=== PATIENT | male | born 1960 | race Caucasian/White ===

== ENCOUNTER 2020-04-17 02:56 | Observation (INO) | payer OTHER, SELFPAY ==
[2020-04-17] VITALS (10 sets, daily range): BP systolic 110–155; BP diastolic 63–98; PULSE 68–93; RESP 14–22; TEMP 36.5–37; O2SAT 94–99; BMI 22.1
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
--- NOTE | 2020-04-17 03:06 | ECG_ITS ---
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 Measurements Intervals [place] Rate: 67 P: -29 FL: 130 QRS: 52 QRSD: 109 T: 39 QT: 386 QTc: 410 Interpretive Statements SINUS RHYTHM EARLY REPOLARIZATION [ST ELEVATION WITH NORMALLY INFLECTED T WAVE] No previous ECG available for comparison Electronically Signed On 04-17-2020 9:14:10 CDT by Yumiko Che M.D. [id number]
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
[2020-04-17] MEDS: ondansetron 2 mg/ML SDV 2 mL 4 MG IVP (03:35)
[2020-04-17] MEDS: sodium chloride 0.9% 1,000 ML 999 ML IV (03:36)
[2020-04-17] MEDS: iohexol 300 mg/mL 100 mL Btl IV (03:49)
[2020-04-17 04:48] LABS: Basophils # 0.1 10^3/uL (0.0-0.1); Basophils % 0.3 %; Eosinophils # 0.1 10^3/uL (0.0-0.8); Eosinophils % 0.3 %; Hematocrit 41.9 % (42.0-52.0); Lymphocytes # 1.5 10^3/uL (0.8-4.8); Lymphocytes % 7.3 %; Mean Corpuscular HGB Conc 33.4 g/dL (30.0-36.0); Mean Corpuscular Hemoglobin 32.1 pg (28.0-34.0); Mean Corpuscular Volume 96.1 fL (80-94); Mean Platelet Volume 9.3 fL (7.4-10.4); Monocytes # 1.1 10^3/uL (0.2-0.9); Monocytes % 5.2 %; Neutrophils # 18.26 10^3/uL (1.8-7.7); Neutrophils % 86.3 %; Nucleated Red Blood Cells % 0 %; Platelet Count 344 10^3/cmm (130-400); Red Blood Count 4.36 10^6/uL (4.1-5.3); Red Cell Distribution Width 12.7 % (12.1-15.1); White Blood Count 21.2 10^3/uL (4.0-10.0)
[2020-04-17 05:16] LABS: Alanine Aminotransferase 21 U/L (0-41); Albumin Level 4.2 g/dL (3.5-5.2); Alcohol Level 190 mg/dL (0-10); Alkaline Phosphatase 45 IU/L (40-130); Anion Gap 14.9 (5-19); Aspartate Amino Transferase 23 U/L (0-40); Blood Urea Nitrogen 13 mg/dL (6-20); Calcium 8.1 mg/dL (8.5-10.5); Carbon Dioxide 22 mmol/L (22-29); Chloride 104 mmol/L (98-107); Globulin 2.3 g/dL (1.3-4.6); Glomerular Filtration Rate 86.4 mL/min (90-130); Glucose 115 mg/dL (65-115); Osmolality Calculated 281 mOsm/kg (285-295); Potassium 3.9 mmol/L (3.5-5.1); Sodium 137 mmol/L (136-145); Total Bilirubin 0.2 mg/dL (0.15-1.2); Total Protein 6.5 g/dL (6.6-8.7)
[2020-04-17 05:29] LABS: Add Urine Microscopic? NO
[2020-04-17 05:35] LABS: Bilirubin Urine Neg (NEGATIVE); Blood Urine Neg (Negative); Glucose Urine UA Norm (Normal); Ketones Urine Negative (Negative); Leukocyte Esterase Urine Negative (Negative); Nitrate Urine Negative (Negative); Protein Urine Neg (Negative); Urine Appearance Clear (CLEAR); Urine Color Yellow (Yellow); Urobilinogen Urine Norm (Negative); pH Urine 5 (5-7)
[2020-04-17 05:38] LABS: INR 0.87 (0.8-1.2)
[2020-04-17 05:44] LABS: Amphetamines Screen Urine Negative (Negative); Barbiturates Screen Urine Negative (Negative); Benzodiazepines Screen Urine Negative (Negative); Cocaine Screen Urine Negative (Negative); Opiate Screen Urine Negative (Negative); PCP Screen Urine Negative (Negative); THC Screen Urine Negative (Negative)
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
[2020-04-17] MEDS: tetanus-dipt-pertussis 0.5 mL SDV IM (06:48)
[2020-04-17] MEDS: lactated ringers 1,000 ML 100 ML IV ×2 (07:57→18:05)
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
[2020-04-17] MEDS: oxyCODONE-APAP 5-325 mg Tablet 1 TAB PO (12:18)
--- NOTE | 2020-04-17 16:13 | PM.PN ---
Subjective Subjective: Interval history: No acute events. Patient has been able to wean down to room air, currently saturating 96%. He has been up and ambulating within the room to the bathroom and back. Per nurse he was able to do some squats in his room earlier. No overt signs of alcohol withdrawal. Medications: Reviewed: Yes Vitals/I&O/Wt Last Vital Signs Temp 98.1 F 04/17/20 15:57 Pulse 93 04/17/20 15:57 Resp 18 04/17/20 15:57 BP 134/67 04/17/20 15:57 Pulse Ox 96 04/17/20 12:18 04/17/20 04/17/20 04/17/20 06:59 14:59 22:59 Intake Total 480 / 480 Output Total 800 / 800 Balance -320 / -320 Weight last 48 hrs Weight 68.039 kg Physical Exam Narrative: EXAM NARRATIVE: GEN: Awake, alert and oriented, no acute distress CVS: S1s2 N RS: CTA B/L Abd: Soft, nt/nd , bs+ CALF SKINNER: no focal neuro deficits Data : 04/17/20 04:05 04/17/20 04:05 A&P Assessment and plan (1) Closed head injury: Will defer to primary. Possible traumatic closed head injury with loss of consciousness. No neurologic focal deficits currently and no obvious acute skin findings of skull. Status: Acute (2) Closed rib fracture: Status: Acute Qualifiers: Encounter type: initial encounter Laterality: left Rib fracture type: single rib Qualified Code(s): S22.32XA - Fracture of one rib, left side, initial encounter for closed fracture (3) Pneumothorax: Small apical pneumothorax seen. Pain is currently well controlled Otherwise management per surgical recommendations. Repeat chest x-ray planned for tomorrow morning Patient has been able to be weaned down to room air today. Status: Acute Qualifiers: Encounter type: initial encounter Pneumothorax type: traumatic Qualified Code(s): S27.0XXA - Traumatic pneumothorax, initial encounter (4) Alcohol intoxication: Alcohol intoxication presentation Continue hydration with IV fluids Monitor for any withdrawal, none evident now. Continue thiamine 100 mg p.o. daily Avoid Ativan given history of head injury.. 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
[2020-04-18] VITALS: BP 126/75; PULSE 57; RESP 20; TEMP 37.3; O2SAT 94
[2020-04-18 04:00] VITALS: BP 151/84; PULSE 73; RESP 17; TEMP 37; O2SAT 98
[2020-04-18] MEDS: lactated ringers 1,000 ML 100 ML IV (05:50)
[2020-04-18 05:54] LABS: Basophils % 0.4 %; Eosinophils # 0.2 10^3/uL (0.0-0.8); Eosinophils % 2.1 %; Hematocrit 41.4 % (42.0-52.0); Hemoglobin 13.6 g/dL (11.7-16.6); Lymphocytes # 2.7 10^3/uL (0.8-4.8); Lymphocytes % 26.7 %; Mean Corpuscular HGB Conc 32.9 g/dL (30.0-36.0); Mean Corpuscular Hemoglobin 31.6 pg (28.0-34.0); Mean Corpuscular Volume 96.1 fL (80-94); Mean Platelet Volume 9.2 fL (7.4-10.4); Monocytes # 0.8 10^3/uL (0.2-0.9); Monocytes % 7.6 %; Neutrophils % 62.9 %; Nucleated Red Blood Cells % 0 %; Platelet Count 321 10^3/cmm (130-400); Red Blood Count 4.31 10^6/uL (4.1-5.3); Red Cell Distribution Width 12.7 % (12.1-15.1)
[2020-04-18 06:15] LABS: Alanine Aminotransferase 17 U/L (0-41); Albumin Level 3.7 g/dL (3.5-5.2); Alkaline Phosphatase 49 IU/L (40-130); Aspartate Amino Transferase 25 U/L (0-40); Blood Urea Nitrogen 8 mg/dL (6-20); Calcium 8.8 mg/dL (8.5-10.5); Carbon Dioxide 24 mmol/L (22-29); Chloride 107 mmol/L (98-107); Globulin 1.7 g/dL (1.3-4.6); Glomerular Filtration Rate 115.4 mL/min (90-130); Glucose 110 mg/dL (65-115); Osmolality Calculated 279 mOsm/kg (285-295); Sodium 136 mmol/L (136-145); Total Bilirubin 0.5 mg/dL (0.15-1.2); Total Protein 5.4 g/dL (6.6-8.7)
--- NOTE | 2020-04-18 06:35 | XR_ITS ---
WS: [id number] PROCEDURE: XR chest 2V* 61267 CLINICAL INFORMATION: Pneumothorax COMPARISON: None. FINDINGS: Heart: Normal cardiac silhouette. Lungs: Lungs are clear. No consolidation or pleural fluid. No acute pulmonary infiltrates. Bones: Chronic appearing anterior wedging of the thoracolumbar junction. XR/XR chest 2V* 37526 IMPRESSION: No acute chest findings.
[2020-04-18 08:00] VITALS: BP 154/79; PULSE 70; RESP 18; TEMP 36.7; O2SAT 97
[2020-04-18] MEDS: thiamine 100 mg Tablet PO (08:24)
--- NOTE | 2020-04-18 10:20 | PC.CHAP ---
Pastoral Care Encounter/Spiritual Assessment Type of Contact [] Declined chief clerk visit [] Patient/Family/Request visit [] Outpatient visit [] Follow-up visit [] Physician referral [] Code/Alert [x] Routine visit [] Staff referral [] Actively dying [] Patient sleeping [] Family support [] [] Out of room [] Palliative care [] [] Receiving care in room [] Pre-surgical visit [] Trauma [] Long length of stay [] ICU visit [] Other: Relational/Emotional Strength [] Patient feels connected with others/family/visitors/staff [] Distress [] Loneliness/isolation [] Abandonment Spirituality of Patient [] Person of Toña [] Attends Taoist of their Toña [] Believes in Prayer [] Reads Bible or Lutheran materials [] There are Spiritual issues to be addressed Mid Level Business Analyst Interventions [x] Prayer [x] Active listening [x] Non-anxious presence [x] Spiritual/emotional support [] Crisis/trauma care [] Spiritual counseling [] Bereavement support [] Provided bereavement packet [] Provided Bible/devotional materials [] Provided toy/stuffed animal, coloring book to patient or family member [] Provided Communion [] Anointing/[place] [] Salvation [x Completed spiritual assessment [] Other: Impact on Illness or Injury [x] Angry [] Fearful [] Anxious [] Often cries [] Exhaustion [] Unable to work [] Unable to attend voodoo [] Unable to walk/stand [] Unable to read [] Unable to drive [] Unable to eat/drink [] Unable to sleep [] Unable to be with family [] Patient intubated [] Other: Summary Patient not in good frame of mind. Walked to the nurse's station Time spent with patient 10 min
[2020-04-18 12:00] VITALS: BP 147/84; PULSE 68; RESP 18; TEMP 36.7; O2SAT 94
--- NOTE | 2020-04-18 13:42 | P.PN_ITS ---
Subjective Subjective: Interval history: He is walking around in the hallway, denies any symptoms. Denies any headache, dizziness. No shortness of breath or chest pain. He says he is feeling well and is wanting to go home. Vitals/I&O/Wt Last Vital Signs Temp 98.1 F 04/18/20 12:00 Pulse 68 04/18/20 12:00 Resp 18 04/18/20 12:00 BP 147/84 04/18/20 12:00 Pulse Ox 94 04/18/20 12:00 04/17/20 04/18/20 04/18/20 22:59 06:59 14:59 Intake Total 1000 / 1480 1000 / 2480 360 / 360 Output Total 400 / 1200 Balance 600 / 280 1000 / 1280 360 / 360 Weight last 48 hrs Weight 68.039 kg Physical Exam Const: COMMON NORMALS: no acute distress and patient oriented x3 OTHER: Up and about walking in the hallway, at the nurses station. HENMT: COMMON NORMALS: oropharynx normal Neck/C-Spine: COMMON NORMALS: no JVD Resp: COMMON NORMALS: normal respiratory effort and clear to auscultation bilaterally AUSCULTATION: clear to auscultation bilaterally Cardio: COMMON NORMALS: no JVD, regular rhythm, S1 normal heart sound present, S2 normal heart sound present and No murmurs present (Cardio) RHYTHM: regular rhythm HEART SOUNDS: S1 normal heart sound present and S2 normal heart sound present GI: COMMON NORMALS: Normal to inspection, nondistended, normoactive bowel sounds present, Soft to palpation and non-tender PALPATION: Yes Soft to palpation Extremity: COMMON NORMALS: no joint enlargement and no pedal edema Neuro: COMMON NORMALS: patient oriented x3 and moves all extremities Skin: COMMON NORMALS: no jaundice Data : 04/18/20 05:40 04/18/20 05:40 A&P Assessment and plan (1) Closed head injury: Per primary. He denies any headache, dizziness. He is walking around in the hallway. Status: Acute (2) Closed rib fracture: Symptomatic management. Incentive spirometry. Status: Acute Qualifiers: Encounter type: initial encounter Laterality: left Rib fracture type: single rib Qualified Code(s): S22.32XA - Fracture of one rib, left side, initial encounter for closed fracture (3) Pneumothorax: Management per surgical recommendations. There is no expansion, and appears likely resolution on chest x-ray today. He reports no shortness of breath, no chest pain. Out walking in the hallway without needing any oxygen. Status: Acute Qualifiers: Encounter type: initial encounter Pneumothorax type: traumatic Qualified Code(s): S27.0XXA - Traumatic pneumothorax, initial encounter (4) Alcohol intoxication: Encourage cessation. He denies any history of withdrawal. No signs of withdrawal in the hospital. Continue thiamine 100 mg p.o. daily Avoid Ativan given history of head injury. Status: Acute Qualifiers: Complication of substance-induced condition: uncomplicated Qualified Code(s): F10.920 - Alcohol use, unspecified with intoxication, uncomplicated (5) Tobacco dependency: Continue to encourage cessation. Status: Acute (6) Abrasion: Status: Acute Attestations Medical Necessity Statement*: Pending reassessment of his traumatic injuries per surgical team and possible discharge home. 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
[2020-04-18 14:26] VITALS: BP 147/84; PULSE 68; RESP 18; TEMP 36.7; O2SAT 94
--- NOTE | 2020-04-18 15:24 | P.PN_ITS ---
Subjective Subjective: Interval history: Patient feels great denies any nausea or vomiting, ready to go home Vitals/I&O/Wt Last Vital Signs Temp 98.1 F 04/18/20 14:26 Pulse 68 04/18/20 14:26 Resp 18 04/18/20 14:26 BP 147/84 04/18/20 14:26 Pulse Ox 94 04/18/20 14:26 04/18/20 04/18/20 04/18/20 06:59 14:59 22:59 Intake Total 1000 / 2480 360 / 360 Balance 1000 / 1280 360 / 360 Weight last 48 hrs Weight 150 lb Physical Exam Narrative: EXAM NARRATIVE: Abdomen: Soft, moving all 4 extremities, mildly tender left shoulder Data : 04/18/20 05:40 04/18/20 05:40 A&P Assessment and plan (1) Closed rib fracture: Stable Pain controlled Status: Acute Qualifiers: Encounter type: initial encounter Laterality: left Rib fracture type: single rib Qualified Code(s): S22.32XA - Fracture of one rib, left side, initial encounter for closed fracture (2) Pneumothorax: Resolved DC home today Status: Acute Attestations Medical Necessity Statement*: Apical pneumothorax, resolved DC home today Coding Level of Care Code Acute Collections Clerk for [facility] Fwd Diagnoses Closed rib fracture S22.32XA Encounter type: initial encounter Laterality: left Rib fracture type: single rib Pneumothorax J93.9
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
== END 2020-04-18 14:27 | disposition home or self-care (01) ==
LOC: ER 05:55 → MEDSURG 06:20
PROVIDERS: Emergency Medicine; Admitting Provider Internal Medicine; Emergency Provider Emergency Medicine; Visit Provider Surgery
DX: S27.0XXA Traumatic pneumothorax, initial encounter (principal); S22.32XA Fracture of one rib, left side, initial encounter for closed fracture; S09.90XA Unspecified injury of head, initial encounter; V86.25XA Person on outside of 3- or 4- wheeled all-terrain vehicle (ATV) injured in traffic accident, initial encounter; F17.210 Nicotine dependence, cigarettes, uncomplicated; Z82.49 Family history of ischemic heart disease and other diseases of the circulatory system; F10.920 Alcohol use, unspecified with intoxication, uncomplicated; Y90.6 Blood alcohol level of 120-199 mg/100 ml
CPT/HCPCS: 12345; 36415; 70450; 71046; 71260; 72125; 74177; 80053; 80306; 80307; 81003; 85025; 85610; 90471; 90715; 93005; 94762; 96360; 96361; 96374; 96375; 99284; 99285; G0378; J2405; J3411; J7030; Q9967